=== PATIENT | male | born 1945 | race Caucasian/White ===

== ENCOUNTER → 2017-01-10 | Emergency (ER) | payer MEDICARE ==
[2017-01-10 01:43] VITALS: PULSE 0; RESP 12; O2SAT 95
[2017-01-10 01:56] VITALS: BP 0/0
--- NOTE | 2017-01-10 02:12 | C.PDOC ---
History Of Present Illness 71 year old male brought in from [facility] home by paramedics and ACLS intubated with CPR being performed. On arrival to ER patient is found to be pulseless even with CPR. Dr. Johnson notified of patient's ; [place] registration made, . Chief Complaint (Nursing): Cardiac Arrest Past Medical History Vital Signs: Last Vital Signs Temp Pulse 0 L 01/10/17 01:28 Resp 12 01/10/17 01:28 BP 0/0 L 01/10/17 01:20 Pulse Ox 95 01/10/17 02:12 - Medical History PMH: Malignancy (Prostate) Denies: Chronic Kidney Disease Family History: States: Unknown Family Hx - Social History Hx Tobacco Use: No Hx Alcohol Use: No Hx Substance Use: No - Immunization History Hx Influenza Vaccination: No Hx Pneumococcal Vaccination: No ED Course And Treatment O2 Sat by Pulse Oximetry: 95 Disposition Discussed With : Cally Johnson - Disposition Disposition: WITH WITHOUT AUTOPSY Disposition Time: 01:30 Condition: Forms: [employer] [employer] ([place]ian) - Clinical Impression Clinical Impression: Cardiac arrest, Respiratory arrest
== END ==
LOC: C.ER 01:20
DX: I46.9 Cardiac arrest, cause unspecified (principal)
CPT/HCPCS: 99285; J0171